=== PATIENT | female | born 1960 | race African-American/Black ===

== ENCOUNTER 2016-12-28 16:19 | Observation (INO) | payer OTHER ==
[~2016-12-28] VITALS: Ht 162.6 cm; Wt 63.5 kg
[~2016-12-28 16:19] MED LIST: ADVIL PM1 TABLET PO; ADVIL200 MG PO; ASPIR 8181 M1 PO; BACTRIM,SEPT1 TABLET PO; BENTYL20 MG PO; CHOLESTYRAMINE; COLACE100 MG PO; DAILY VITAMIN1 EAC8; DILAUDID2 MG PO; Dilaudid PO; EXFORGE 10/31 TABLET PO; EXFORGE HCT 101 EAC2 PO; Exforge; Exforge 10/320 PO; FIBER1 GM PO; FLONASE16 G1 BOTH NARES; Flonase BOTH NARES; HYDROCODON-ACE1 EAC7 PO; Hydrodiuril,Oretic,E PO; IRON PO; IRON18 MG PO; IRON325 M1 PO; Iron; LO-DOSE ASPIRIN81 M1 PO; LORTAB 5-325 M1 EACH PO; METAMUCIL FIBE1 EACH PO; METAMUCIL FIBE3.4 GM PO; METAMUCIL PACKE1 PKT PO; MIRALAX17 GM PO; ONE DAILY MUL400 MCG PO; PATANOL OP100 DROP/5 BOTH EYES; PERCOCET 5/31 TABLET PO; PRILOSEC40 MG PO; PROTONIX40 MG PO; QUESTRAN PACKET4 GM PO; Questran PO; REGLAN10 MG PO; TYLENOL PM EX-1 EACH PO; VALIUM5 MG PO; ZITHROMAX Z-PA250 MG PO; ZOFRAN4 MG PO; [UNRECOGNIZED DRUG - OTHER] PO
[2016-12-28 17:06] LABS: EOSINOPHIL (%) 2.9 % (0-5); EOSINOPHIL COUNT 0.1 K/uL (0-0.3); HEMATOCRIT 35.7 % (36.0-46.0); IMMATURE GRANULOCYTE (%) 0.3 % (0.0-0.7); INSTRUMENT ABS NEUTROPHIL CT 1.6 K/uL; LYMPHOCYTE COUNT 1.8 K/uL (1.0-2.8); MCH 28.8 PG (29.0-34.0); MCHC 33.1 G/DL (30.0-36.0); MCV 87.1 FL (83-99); MEAN PLAT.VOLUME 10.5 uM^3 (9.5-12.4); MONOCYTE (%) 5.8 % (3-12); MONOCYTE COUNT 0.2 K/uL (0-0.8); NEUTROPHIL (%) 43.2 % (45-76); NEUTROPHIL COUNT 1.6 K/uL (1.8-6.4); PLATELET COUNT 247 K/uL (156-360); RBC DIS.WIDTH-SD 41.1 % (39-53); WHITE BLOOD COUNT 3.8 K/uL (4.1-10.2)
[2016-12-28 17:15] LABS: CHLORIDE 104 mEq/L (99-109); POTASSIUM 3.8 mEq/L (3.7-5.4); SODIUM 139 mEq/L (136-147)
[2016-12-28 17:18] LABS: GLUCOSE 87 mg/dL (70-99)
[2016-12-28 17:19] LABS: ANION GAP 8 MEQ/L (2-14); TOTAL BILIRUBIN 1.5 mg/dL (0.0-1.0)
[2016-12-28 17:21] LABS: ALKALINE PHOSPHATASE 97 IU/L (3-129); GFR ESTIMATE (CALCULATED) > 59 mL/min/
[2016-12-28 17:22] LABS: UREA NITROGEN (BUN) 17 mg/dL (9-23)
[2016-12-28 17:23] LABS: DIRECT BILIRUBIN 0.5 mg/dL (0.0-0.3)
[2016-12-28 17:25] LABS: LIPASE 64 U/L (1.0-51.0)
[2016-12-28] MEDS ORDERED: BENTYL20 MG PO (19:56)
[2016-12-28] MEDS ORDERED: PROTONIX40 MG PO (19:57)
[2016-12-28] MEDS ORDERED: QUESTRAN PACKET4 GM PO (19:58)
[2016-12-28] MEDS ORDERED: HYDROCHLOROTH12.5 M3 PO (19:58)
[2016-12-28 21:50] VITALS: BP 97/64
[2016-12-28 23:18] LABS: MCV 87.2 FL (83-99)
[2016-12-29 00:33] VITALS: BP 96/53
[2016-12-29 05:41] LABS: HEMATOCRIT 30.9 % (36.0-46.0); MCHC 33.7 G/DL (30.0-36.0); MEAN PLAT.VOLUME 10.5 uM^3 (9.5-12.4); PLATELET COUNT 185 K/uL (156-360); RBC DIS.WIDTH-CV 13.1 % (11.8-14.6); RBC DIS.WIDTH-SD 42.6 % (39-53); RED BLOOD COUNT 3.47 M/uL (3.80-5.20); WHITE BLOOD COUNT 2.8 K/uL (4.1-10.2)
[2016-12-29 06:09] LABS: ANION GAP 7 MEQ/L (2-14); CHLORIDE 108 MEQ/L (99-109); GFR ESTIMATE (CALCULATED) > 59 mL/min/; GLUCOSE 70 mg/dL (70-99); POTASSIUM 3.7 MEQ/L (3.7-5.4); SAMPLE HEMOLYSIS CHECK 0; SAMPLE ICTERIC CHECK 0; SAMPLE LIPEMIA CHECK 0; SODIUM 141 MEQ/L (136-147); UREA NITROGEN (BUN) 13 mg/dL (9-23)
[2016-12-29 08:00] VITALS: BP 112/68
[2016-12-29 10:36] LABS: POC NON-PRINT COM 1 ND
[2016-12-29 12:21] VITALS: BP 116/68
[2016-12-29 17:22] VITALS: BP 92/55
[2016-12-29 19:32] VITALS: BP 111/64
[2016-12-30] VITALS (7 sets, daily range): BP systolic 101–122; BP diastolic 55–71
[2016-12-30 09:26] LABS: MCH 29.6 PG (29.0-34.0); MCHC 33.2 G/DL (30.0-36.0); MEAN PLAT.VOLUME 10.6 uM^3 (9.5-12.4); PLATELET COUNT 194 K/uL (156-360); RBC DIS.WIDTH-SD 42.3 % (39-53); RED BLOOD COUNT 3.82 M/uL (3.80-5.20); WHITE BLOOD COUNT 3.3 K/uL (4.1-10.2)
[2016-12-31 03:29] VITALS: BP 110/55
[2016-12-31 09:26] VITALS: BP 114/55
[2016-12-31 12:00] VITALS: BP 113/64
[2016-12-31] MEDS ORDERED: PROTONIX40 MG PO (12:43)
[2016-12-31] MEDS ORDERED: BENTYL20 MG PO (12:43)
== END 2016-12-31 12:57 | disposition home or self-care (01) ==
LOC: EME 16:19 → EDOF 20:31 → 5WEST 20:31 → ENRESERV 20:34 → 5WEST 21:44
PROVIDERS: Hospitalist; Internal Medicine Gastroenterology; Physician Assistant
PROC: 0DBE8ZX Excision of Large Intestine, Via Natural or Artificial Opening Endoscopic, Diagnostic (ICD-10-PCS; principal; 2016-12-30)
DX: K52.9 Noninfective gastroenteritis and colitis, unspecified (principal); Z85.038 Personal history of other malignant neoplasm of large intestine; Z90.49 Acquired absence of other specified parts of digestive tract; Z79.1 Long term (current) use of non-steroidal anti-inflammatories (NSAID); Z79.82 Long term (current) use of aspirin; R19.7 Diarrhea, unspecified; I10 Essential (primary) hypertension; K64.8 Other hemorrhoids; E78.5 Hyperlipidemia, unspecified; Z90.710 Acquired absence of both cervix and uterus; Z80.3 Family history of malignant neoplasm of breast; Z83.3 Family history of diabetes mellitus; Z82.49 Family history of ischemic heart disease and other diseases of the circulatory system; Z88.1 Allergy status to other antibiotic agents
CPT/HCPCS: 74177; 80048; 80076; 82272; 83605; 83690; 85014; 85018; 85025; 85027; 86850; 86900; 86901; 87177; 87493; 87506; 88305; 99281; 99285; C9113; G0378; J0696; J1170; J1200; J2250; J2270; J2405; J2765; J3010; J7030; J7050; S0030

== ENCOUNTER 2017-01-18 18:17 | Emergency (ER) | payer OTHER ==
[~2017-01-18] VITALS: Ht 162.6 cm; Wt 64.5 kg
[~2017-01-18 18:17] MED LIST changes: +HYDROCHLOROTH12.5 M3 PO
[2017-01-18 19:01] LABS: HEMATOCRIT 33.9 % (36.0-46.0); MCH 29.1 PG (29.0-34.0); MCHC 33.6 G/DL (30.0-36.0); MCV 86.5 FL (83-99); MEAN PLAT.VOLUME 10.5 uM^3 (9.5-12.4); PLATELET COUNT 267 K/uL (156-360); RBC DIS.WIDTH-CV 12.7 % (11.8-14.6); RBC DIS.WIDTH-SD 39.9 % (39-53); RED BLOOD COUNT 3.92 M/uL (3.80-5.20); WHITE BLOOD COUNT 4.2 K/uL (4.1-10.2)
[2017-01-18 19:05] LABS: CHLORIDE 104 mEq/L (99-109); POTASSIUM 3.9 mEq/L (3.7-5.4); SODIUM 141 mEq/L (136-147)
[2017-01-18 19:08] LABS: GLUCOSE 82 mg/dL (70-99)
[2017-01-18 19:09] LABS: ANION GAP 11 MEQ/L (2-14)
[2017-01-18 19:10] LABS: TOTAL BILIRUBIN 1.1 mg/dL (0.0-1.0)
[2017-01-18 19:11] LABS: ALKALINE PHOSPHATASE 102 IU/L (3-129); GFR ESTIMATE (CALCULATED) > 59 mL/min/
[2017-01-18 19:12] LABS: UREA NITROGEN (BUN) 20 mg/dL (9-23)
[2017-01-18 19:27] LABS: QUANTITATIVE HCG < 4.0 MIU/ML
[2017-01-18 21:14] LABS: ADD MIUA? YES; BILIRUBIN NEGATIVE; BLOOD NEGATIVE; COLOR YELLOW ((YELLOW)); GLUCOSE (STRIP) NEGATIVE; KETONES NEGATIVE; LEUKOCYTES NEGATIVE; NITRITE NEGATIVE; PROTEIN (STRIP) NEGATIVE; SPECIFIC GRAVITY 1.026 (1.000-1.030); UROBILINOGEN 0.2 MG/DL (0.2-1.0)
[2017-01-18 21:17] LABS: BACTERIA NONE SEEN /HPF; EPITHELIAL CELLS 1+ /HPF; MUCUS TRACE /LPF; RED BLOOD CELLS 0-5 /HPF (0-5); UCUL ADDED? NO; WHITE BLOOD CELLS 0-5 /HPF (0-5)
[2017-01-18] MEDS ORDERED: NAPROSYN500 MG PO (22:10)
[2017-01-18] MEDS ORDERED: FLEXERIL10 MG PO (22:10)
[2017-01-18 22:19] VITALS: BP 125/78
== END 2017-01-18 22:20 | disposition home or self-care (01) ==
LOC: EME 18:17 → RME 18:17
DX: M54.5 Low back pain (principal); R10.31 Right lower quadrant pain; I10 Essential (primary) hypertension; K21.9 Gastro-esophageal reflux disease without esophagitis; E78.5 Hyperlipidemia, unspecified; Z85.038 Personal history of other malignant neoplasm of large intestine; Z90.710 Acquired absence of both cervix and uterus; Z87.891 Personal history of nicotine dependence
CPT/HCPCS: 74176; 80053; 81003; 84702; 85027; 99281; 99284

== ENCOUNTER 2017-04-19 18:09 | Emergency (ER) | payer OTHER ==
[~2017-04-19] VITALS: Ht 160 cm; Wt 65.6 kg
[~2017-04-19 18:09] MED LIST changes: +FLEXERIL10 MG PO; +NAPROSYN500 MG PO
[2017-04-19 19:24] LABS: ADD MIUA? YES; BILIRUBIN NEGATIVE; BLOOD NEGATIVE; COLOR YELLOW ((YELLOW)); GLUCOSE (STRIP) NEGATIVE; KETONES NEGATIVE; LEUKOCYTES TRACE; NITRITE NEGATIVE; PROTEIN (STRIP) NEGATIVE; SPECIFIC GRAVITY 1.027 (1.000-1.030); UROBILINOGEN 0.2 MG/DL (0.2-1.0)
[2017-04-19 19:39] LABS: MCH 29.1 PG (29.0-34.0); MCHC 33.6 G/DL (30.0-36.0); MCV 86.5 FL (83-99); MEAN PLAT.VOLUME 10.3 uM^3 (9.5-12.4); PLATELET COUNT 216 K/uL (156-360); RBC DIS.WIDTH-CV 12.5 % (11.8-14.6); RBC DIS.WIDTH-SD 39.6 % (39-53); RED BLOOD COUNT 4.16 M/uL (3.80-5.20); WHITE BLOOD COUNT 8.1 K/uL (4.1-10.2)
[2017-04-19 19:49] LABS: CHLORIDE 110 mEq/L (99-109); POTASSIUM 3.7 mEq/L (3.7-5.4); SODIUM 143 mEq/L (136-147)
[2017-04-19 19:51] LABS: GLUCOSE 122 mg/dL (70-99)
[2017-04-19 19:52] LABS: ANION GAP 11 MEQ/L (2-14)
[2017-04-19 19:53] LABS: TOTAL BILIRUBIN 1.2 mg/dL (0.0-1.0)
[2017-04-19 19:54] LABS: ALKALINE PHOSPHATASE 85 IU/L (3-129)
[2017-04-19 19:55] LABS: BACTERIA RARE /HPF; EPITHELIAL CELLS RARE /HPF; HYALINE CASTS 0-5 /LPF; MUCUS 1+ /LPF; RED BLOOD CELLS 0-5 /HPF (0-5); UCUL ADDED? NO; WHITE BLOOD CELLS 0-5 /HPF (0-5)
[2017-04-19 19:55] LABS: GFR ESTIMATE (CALCULATED) > 59 mL/min/
[2017-04-19 19:56] LABS: UREA NITROGEN (BUN) 15 mg/dL (9-23)
[2017-04-19 20:03] LABS: QUANTITATIVE HCG < 4.0 MIU/ML
[2017-04-19] MEDS ORDERED: TRAMADOL HCL50 MG PO (21:22)
[2017-04-19] MEDS ORDERED: ZOFRAN4 MG PO (21:22)
[2017-04-19 22:00] VITALS: BP 101/70
[2017-04-19 22:18] LABS: LIPASE 38 U/L (1.0-51.0)
== END 2017-04-19 22:00 | disposition home or self-care (01) ==
LOC: EME 18:09
PROVIDERS: Physician Assistant
DX: R10.9 Unspecified abdominal pain (principal); R11.2 Nausea with vomiting, unspecified; R19.7 Diarrhea, unspecified; I11.0 Hypertensive heart disease with heart failure; I50.9 Heart failure, unspecified; E78.5 Hyperlipidemia, unspecified; K21.9 Gastro-esophageal reflux disease without esophagitis; Z87.891 Personal history of nicotine dependence; Z85.038 Personal history of other malignant neoplasm of large intestine; Z90.710 Acquired absence of both cervix and uterus; Z90.49 Acquired absence of other specified parts of digestive tract; Z88.1 Allergy status to other antibiotic agents
CPT/HCPCS: 74177; 80053; 81003; 83690; 84702; 85027; 87502; 93005; 99281; 99285; J2405; J2765; J3010; J7030

== ENCOUNTER 2017-11-05 20:22 | Emergency (ER) | payer OTHER ==
[~2017-11-05] VITALS: Ht 162.6 cm; Wt 67.0 kg
[~2017-11-05 20:22] MED LIST changes: +TRAMADOL HCL50 MG PO
[2017-11-05 20:59] LABS: HEMATOCRIT 36.6 % (36.0-46.0); HEMOGLOBIN 12.3 G/DL (11.9-15.5); MCH 29.5 PG (29.0-34.0); MCHC 33.6 G/DL (30.0-36.0); MCV 87.8 FL (83-99); PLATELET COUNT 240 K/uL (156-360); RBC DIS.WIDTH-CV 12.7 % (11.8-14.6); RBC DIS.WIDTH-SD 40.7 % (39-53); RED BLOOD COUNT 4.17 M/uL (3.80-5.20); WHITE BLOOD COUNT 4.7 K/uL (4.1-10.2)
[2017-11-05 21:06] LABS: ALBUMIN 4.3 g/dL (3.2-4.8); CHLORIDE 105 mEq/L (99-109); SODIUM 139 mEq/L (136-147)
[2017-11-05 21:06] LABS: APPEARANCE SL.HAZY ((CLEAR)); BILIRUBIN NEGATIVE; BLOOD NEGATIVE; COLOR YELLOW ((YELLOW)); GLUCOSE (STRIP) NEGATIVE; KETONES 5; LEUKOCYTES MODERATE; NITRITE NEGATIVE; PROTEIN (STRIP) NEGATIVE; SPECIFIC GRAVITY 1.028 (1.000-1.030); UROBILINOGEN 0.2 MG/DL (0.2-1.0)
[2017-11-05 21:09] LABS: GLUCOSE 80 mg/dL (70-99); TOTAL PROTEIN 7.1 g/dL (6.4-8.3)
[2017-11-05 21:10] LABS: TOTAL BILIRUBIN 0.8 mg/dL (0.0-1.0)
[2017-11-05 21:12] LABS: ALKALINE PHOSPHATASE 124 IU/L (3-129); GFR ESTIMATE (CALCULATED) > 59 mL/min/
[2017-11-05 21:13] LABS: UREA NITROGEN (BUN) 15 mg/dL (9-23)
[2017-11-05 21:14] LABS: AST (GOT) 17 IU/L (2-34)
[2017-11-05 21:15] LABS: ALT (GPT) 20 IU/L (3-49)
[2017-11-05 21:16] LABS: LIPASE 98 U/L (1.0-51.0)
[2017-11-05 21:17] LABS: BACTERIA NONE SEEN /HPF; EPITHELIAL CELLS 1+ /HPF; MUCUS TRACE /LPF; UCUL ADDED? NO; WHITE BLOOD CELLS 0-5 /HPF (0-5)
[2017-11-05 22:40] LABS: TROP-I INTERPRETATION NEGATIVE; TROPONIN-I < 0.01 ng/mL (0.0-0.30)
[2017-11-06] MEDS ORDERED: BENTYL20 MG PO (00:52)
[2017-11-06] MEDS ORDERED: REGLAN10 MG PO (00:52)
[2017-11-06 01:34] VITALS: BP 102/68
== END 2017-11-06 01:38 | disposition home or self-care (01) ==
LOC: EME 20:22
DX: R10.13 Epigastric pain (principal); R11.2 Nausea with vomiting, unspecified; K21.9 Gastro-esophageal reflux disease without esophagitis; I11.0 Hypertensive heart disease with heart failure; I50.9 Heart failure, unspecified; E78.5 Hyperlipidemia, unspecified; Z85.038 Personal history of other malignant neoplasm of large intestine; Z87.891 Personal history of nicotine dependence; Z90.710 Acquired absence of both cervix and uterus; Z88.1 Allergy status to other antibiotic agents
CPT/HCPCS: 74177; 80053; 81003; 83605; 83690; 84484; 85027; 93005; 99281; 99284; J2405; J2765; J3010; J7030